=== PATIENT | male | born 1960 ===

== ENCOUNTER → 2018-08-16 | Outpatient (CLI) | payer BC, MEDICARE ==
--- NOTE | 2018-08-16 16:38 | RAD ---
CT of the chest without contrast, low-dose lung cancer screening protocol. 08/16/2018. INDICATION: Long-term smoking history. COMPARISON STUDY: None available TECHNIQUE: Multidetector CT imaging of the chest was performed without the administration of contrast. Low dose lung cancer screening protocol was used. Ill-defined hypodensities are seen in the thyroid gland. Thyroid nodules not excluded. Follow-up thyroid ultrasound could be performed for further evaluation. Heart size is normal. No pericardial effusion is identified. Coronary calcification noted. Scattered small mediastinal lymph nodes are noted. Reference node can be seen in the pretracheal region measuring 6 mm in short axis diameter, therefore not pathologically enlarged by CT size criteria. No pathologically enlarged adenopathy is seen. Calcified lymph nodes are also noted in the subcarinal region and left hilum. The appearance favors prior granulomatous disease. Centrilobular emphysematous changes are noted. No pneumothorax, or pleural effusion is identified. No acute consolidative infiltrate is seen. There is a mildly irregular nodular opacity in the right upper lobe measuring 2 to 3 mm in diameter (axial image 49). Scattered small calcified pulmonary granulomata are noted. A large calcified granuloma is seen in the left lower lobe. 1 to 2 mm nodule noted, right upper lobe (axial image 23). There is what appears to be partially calcified nodule in the right upper lobe measuring 4 to 5 mm in diameter (axial image 26). Noncalcified nodule in the right middle lobe measures 5 mm in diameter (axial image 67). Limited visualization of the upper abdomen demonstrates no acute changes. No acute osseous abnormalities are identified. IMPRESSION: 1. Baseline exam demonstrating scattered noncalcified pulmonary nodules, largest measuring 5 mm in right middle lobe. Lung RADS category 2. Recommend noncontrast enhanced CT exam of the chest in one year. 2. Ill-defined hypodensities in the thyroid gland. Findings most likely represent thyroid nodules. Consider ultrasound evaluation. 3. Centrilobular emphysema. CT DOSING PQRS STATEMENT: One or more of the following individualized dose reduction techniques were utilized for this examination: 1. Automated exposure control 2. Adjustment of the mA and/or kV according to patient size 3. Use of iterative reconstruction technique Electronically signed by: Torey Davis MD (08/16/2018 4:35 PM) [id number]
== END | disposition home or self-care (01) ==
LOC: CT 12:34
PROVIDERS: ATTEND Internal Medicine Hematology & Oncology
DX: Z12.2 Encounter for screening for malignant neoplasm of respiratory organs (principal); J43.2 Centrilobular emphysema; Z87.891 Personal history of nicotine dependence
CPT/HCPCS: G0297